=== PATIENT | female | born 1950 | race Caucasian/White ===

== ENCOUNTER 2020-02-15 10:15 | Emergency (ER) | payer MEDICARE ==
[~2020-02-15] VITALS: Ht 154.9 cm; Wt 64.0 kg
[2020-02-15 10:23] VITALS: BP 158/85
--- NOTE | 2020-02-15 11:15 | NUR ---
PT HAS HX OF BIPOLAR AND STATES SHE IS HAVING ERRATIC CYLCES IN MOODS, FEELS HER BIPOLAR IS OUT OF CONTROL. SHE STATES SHE IS COMPLIANT WITH MEDICATIONS BUT DOES NOT HAVE A PYSCH IN TOWN TO MANAGE MEDICATIONS. SHE THINKS THEY ARENT WORKING WELL.
--- NOTE | 2020-02-15 11:16 | NUR ---
COVER REMOVER: PT TO ROOM FROM [facility]O.
--- NOTE | 2020-02-15 11:20 | NUR ---
DENIES, SI/SA. DOES NOT WANT TO HURT ANYONE OR HERSELF.
--- NOTE | 2020-02-15 11:58 | NUR ---
CMO & PRESIDENT, LEIGHANN AT BEDSIDE
[2020-02-15] MEDS ORDERED: ARIPIPRAZOLE 5 MG TABLET ONE (12:22)
[2020-02-15] MEDS ORDERED: SERTRALINE 50MG TABLET ONE (12:23)
--- NOTE | 2020-02-15 12:29 | NUR ---
MEDICATED PER ORDERS. LEIGHANN AT BEDSIDE DISCUSSING POC
--- NOTE | 2020-02-15 12:29 | NUR ---
Patient/Caregiver given discharge instructions and they have confirmed that they understand the instructions. Patient ambulatory with steady gait.
[2020-02-15] MEDS ORDERED: SERTRALINE 50MG TABLET PO ONE (12:30)
[2020-02-15] MEDS ORDERED: ARIPIPRAZOLE 5 MG TABLET PO ONE (12:30)
== END 2020-02-15 12:40 | disposition home or self-care (01) ==
LOC: EDBD 10:15 → ED 12:29
DX: F31.9 Bipolar disorder, unspecified (principal); F41.9 Anxiety disorder, unspecified; I10 Essential (primary) hypertension; E78.5 Hyperlipidemia, unspecified
CPT/HCPCS: 99283

== ENCOUNTER 2021-02-18 10:49 | Emergency (ER) | payer MEDICARE ==
[~2021-02-18] VITALS: Ht 154.9 cm; Wt 60.0 kg
--- NOTE | 2021-02-18 10:54 | NUR ---
PT BIB EMS FOR FEELING DIZZY AND LIGHT HEADED. PT ALSO REPORTS HER BP WAS HIGH AT HOME "IN THE 180S". 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 PT AMBULATED WITH STEADY GAIT TO [facility]. EKG COMPLETE. PT CONNECTED TO ALL MONITORING EQUIPMENT.
[2021-02-18] MEDS ORDERED: ASPIRIN 81 MG TABLET CHEW ONE (11:14)
[2021-02-18] MEDS ORDERED: HYDROcodone/APAP 5/325 TABLET ONE (11:15)
--- NOTE | 2021-02-18 11:18 | NUR ---
PT CO OF PAIN. PT MEDICATED PER
--- NOTE | 2021-02-18 11:21 | NUR ---
PT ANXIOUS. "I WANT TO WALK AROUND I CANT SIT HERE". PT EDUCATED ON THAT SINCE SHE FEELS DIZZY IT ISNT SAFE FOR HER TO WALK AROUND. PT VERBALIZED UNDERSTANDING. STILL WANTS TO STAND AT EDGE OF BED
[2021-02-18 11:28] LABS: BASOPHILS % (AUTO) 1 % (0-1); EOSINOPHILS % (AUTO) 0 % (1-7); LYMPHOCYTES % (AUTO) 25 % (22-44); MEAN CORPUSCULAR HEMOGLOBIN 29.4 pg (27.0-34.8); MEAN PLATELET VOLUME 9.3 fL (7.4-10.4); MONOCYTES % (AUTO) 6 % (2-9); NEUTROPHILS % (AUTO) 68 % (42-75); PLATELET COUNT 214 x10^3/uL (130-400); RED BLOOD COUNT 5.09 x10^6/uL (3.82-5.3); RED CELL DISTRIBUTION WIDTH 14.3 % (9.6-15.2)
[2021-02-18] MEDS ORDERED: HYDROcodone/APAP 5/325 TABLET PO ONE (11:30)
[2021-02-18] MEDS ORDERED: ASPIRIN 81 MG TABLET CHEW PO ONE (11:30)
[2021-02-18 11:32] LABS: MD NO
[2021-02-18 11:39] LABS: ALANINE AMINOTRANSFERASE 43 U/L (12-78); ALBUMIN 3.8 g/dL (3.4-5.0); ANION GAP 7 mmol/L (5-15); CALCIUM 8.9 mg/dL (8.5-10.1); CHLORIDE 109 mmol/L (98-107); CREATININE 0.75 mg/dL (0.55-1.02)
[2021-02-18 11:43] LABS: ALKALINE PHOSPHATASE 78 U/L (45-117); BILIRUBIN,TOTAL 1.3 mg/dL (0.2-1.0); TOTAL PROTEIN 7.5 g/dL (6.4-8.2); TROPONIN I < 0.015 ng/mL (0.000-0.045)
[2021-02-18 12:08] LABS: FREE T4 (FREE THYROXINE) 1.35 ng/dL (0.76-1.46)
[2021-02-18] MEDS ORDERED: SODIUM CHLORIDE 0.9% 1,000ML IVBOLUS ONE (13:30)
[2021-02-18 14:36] VITALS: BP 167/69
== END 2021-02-18 15:11 | disposition home or self-care (01) ==
LOC: ED 12:58
DX: R42 Dizziness and giddiness (principal); R07.89 Other chest pain; R51.9 Headache, unspecified; I10 Essential (primary) hypertension; Z96.653 Presence of artificial knee joint, bilateral
CPT/HCPCS: 36415; 71045; 80053; 84439; 84443; 84481; 84484; 85025; 93005; 99285; J7030